=== PATIENT | female | born 1975 | race Caucasian/White ===

== ENCOUNTER 2016-08-10 20:15 | Emergency (ER) | payer SELFPAY ==
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
[2016-08-10 21:48] VITALS: BP 116/69
--- NOTE | 2016-08-10 23:15 | ED Physician Documentation ---
Fall - HISTORIAN Historian: patient - HPI Stated Complaint: tailbone pain Chief Complaint: Fall Additional Information: Slid down 3-4 carpeted steps. Hurt sacral area. No other injuries. Ambulating. Onset: just prior to arrival Where: home Context: slipped r: moderate Associated Symptoms:: no loss of consciousness Location of Pain/Injury: lower back Injury to Right Extremity: none Injury to Left Extremity: none Front/Back of Body, Lg ([place]): 1 - pain Further Comments: no - ROS CONST: no problems NEURO: denies: dizziness, anxiety, depression MS/SKIN/LYMPH: denies: weakness, numbness, neck pain, back pain, ankle swelling , leg swelling, rash EYES/ENT: none CVS/RESP: none GI/: denies: problems urinating, nausea, vomiting - PAST HX Past History: other (L1 compression fracture) Immunizations: referred to PCP Allergies/Adverse Reactions: Allergies Allergy/AdvReac Type Severity Reaction Status Date / Time codeine Allergy Mild Verified 08/10/16 20:28 Home Medications: Ambulatory Orders Medication Instructions Recorded NK [NK] 02/02/16 - SOCIAL HX Smoking History: cigarettes Alcohol Use: none Drug Use: none - FAMILY HX Family History: no significant history - VITAL SIGNS Vital Signs: Vital Signs Temp Pulse Resp BP Pulse Ox 92 H 16 116/69 99 08/10/16 21:35 08/10/16 21:35 08/10/16 21:35 08/10/16 21:35 - REVIEWED ASSESSMENTS Nursing Assessment Reviewed: Yes Vitals Reviewed: Yes Progress - Results/Orders Results/Orders: x-rays ordered L-spine - Progress Progress: pt. stable entire time in er Critical Care Note - Critical Care Note Total Time (mins): 0 ED Results Lab/Radiology - Lab Results Lab Results: none ordered - Radiology Radiology Impressions: x-rays no acute injury - Orders Orders: ED Orders Category Date Time Status L SPINE 2 OR 3 VIEWS [RAD] Stat Exams 08/10/16 Completed Fall Physical Exam - Physical Exam General Appearance: alert, moderate distress Head: non-tender, no swelling, no obvious injury. No: raccoon eyes, Perkins's sign, trauma Neck: non-tender, painless ROM, trachea midline Eye: REJI, EOMI, lids & conjunct. nml ENT: nml external inspection, no dental injury, no oral injury, airway nml Resp/CVS: chest non-tender, no ecchymosis, breath sounds nml, no resp. distress , heart sounds nml Abdomen: soft, no organomegaly, normal bowel sounds, no abdominal bruit, no distension, non-tender Neuro: oriented x3, CN's nml as tested, sensation nml, motor nml, mood/affect nml, commercial energy rater nml, reflexes nml Skin: color nml, no rash. No: ecchymosis Back: no CVA tenderness, no vertebral tenderness. No: muscle spasm Extremities: atraumatic, pelvis stable, hips non-tender, no pedal edema, nml ROM , other (slr neg to 90 degrees bilat.) - [place] Coma Score Eyes Open: Spontaneous Speech: Oriented Motor: Obeys Commands (15) Discharge Clincal Impression: Lower back injury Qualifiers: Encounter type: initial encounter Qualified Code(s): S39.92XA - Unspecified injury of lower back, initial encounter Strain, sacral Qualifiers: Encounter type: initial encounter Qualified Code(s): S39.012A - Strain of muscle, fascia and tendon of lower back, initial encounter Referrals: Primary Doctor,No [Primary Care Provider] - 2 Days Home Medications: Ambulatory Orders NK [NK] 02/02/16 Comments: discharged with otc ibuprofen Condition: Stable Disposition: 01 HOME, SELF-CARE Decision to Admit: NO Decision Time: 21:30
== END 2016-08-10 21:32 | disposition home or self-care (01) ==
LOC: ED 20:15
DX: S39.92XA Unspecified injury of lower back, initial encounter (principal); S39.012A Strain of muscle, fascia and tendon of lower back, initial encounter; W19.XXXA Unspecified fall, initial encounter; Y93.9 Activity, unspecified; Y99.9 Unspecified external cause status
CPT/HCPCS: 72100; 99283

== ENCOUNTER 2016-10-24 20:00 | Emergency (ER) | payer BC, OTHER ==
[2016-10-24 20:08] VITALS: BP 118/80
[2016-10-24] MEDS: SULFAMETHOXAZOLE/TRIMETHOPRIM 1 EACH TABLET PO ONE (20:22)
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
== END 2016-10-24 20:23 | disposition home or self-care (01) ==
LOC: ED 20:00
DX: L03.113 Cellulitis of right upper limb (principal)
CPT/HCPCS: 99283; A9270

== ENCOUNTER 2018-03-23 16:12 | Emergency (ER) | payer SELFPAY ==
[2018-03-23 19:29] LABS: BASOPHILS % 0.7 (0.0-1.5); EOSINOPHILS % 5.5 % (0.0-6.8); MEAN CORPUSCULAR HEMOGLOBIN 32.7 pg (28.0-34.0); MONOCYTES % 5.9 % (0.0-11.0); NEUTROPHILS # 4.4 # k/uL (1.4-7.7)
[2018-03-23] MEDS: 0.9 % SODIUM CHLORIDE 1,000 ML IV ONE (19:33)
[2018-03-23 19:42] LABS: eGFR (Non-African) > 60
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
[2018-03-23 21:07] VITALS: BP 111/65
== END 2018-03-23 20:31 | disposition home or self-care (01) ==
LOC: ED 16:12
DX: K02.9 Dental caries, unspecified (principal); R11.2 Nausea with vomiting, unspecified
CPT/HCPCS: 80053; 85025; J7030; 96365; 99283; S1016

== ENCOUNTER 2018-12-10 19:12 | Emergency (ER) | payer SELFPAY ==
--- NOTE | 2018-12-10 19:22 | ED Physician Documentation ---
Sore Throat/Dental Pain - HISTORIAN Historian: patient - HPI Stated Complaint: dental pain x 3 weeks increased last two days Chief Complaint: Dental Pain Onset: days ago (14) Context: Dental Caries, Possible Infection Associated Symptoms: moderate, L ear pain. denies: fever, chills, sore throat, unable to swallow, runny nose, congestion Further Comments: yes (SHe has dental pain left lower jaw and into ear. Pain started over three weeks ago started to increase last two days. She has taken Ibuprofen at 1 pm and she is concerned about swelling and pain. She has a dentist she can make an appt with. No fever.) - ROS CONST: no problems NEURO/PSYCH: headache - PAST HX Past History: none Immunizations: UTD Allergies/Adverse Reactions: Allergies Allergy/AdvReac Type Severity Reaction Status Date / Time codeine Allergy Mild Verified 03/23/18 17:57 Home Medications: Ambulatory Orders Medication Instructions Recorded Penicillin V Potassium [Pen V K] 500 mg PO TID #30 tablet 03/23/18 - SOCIAL HX Smoking History: cigarettes Alcohol Use: none Drug Use: none - FAMILY HX Family History: No - VITAL SIGNS Vital Signs: Vital Signs Temp Pulse Resp BP Pulse Ox 111/65 03/23/18 21:02 - REVIEWED ASSESSMENTS Nursing Assessment Reviewed: Yes Vitals Reviewed: Yes Dental Pain Physical Exam - EXAM General Appearance: no acute distress, alert Head/Neck: head nml inspection. No: pain over sinuses Eyes: eyes nml inspection, PERRL Mouth/Throat: lips nml, pharynx nml, voice nml, no drooling, no air way problems, gum swelling around teeth Ear/Nose: nml inspection Respiratory: no resp. distress, breath sounds nml CVS: reg. rate & rhythm, heart sounds nml Abdomen: soft, no distension Extremities: non-tender Skin: warm/dry Neuro/Psych: none Discharge Clincal Impression: Dental caries Referrals: Primary Doctor,No [Primary Care Provider] - 2 Days Comments: 1. Amoxicillin 875 mg take 1 by mouth twice daily x 10 days 2. OTC meds as directed as needed for pain 3. Warm salt water gargles 4. See Dentist TRISTEN 5. Return to ER for any increasing concerns Condition: Stable Disposition: 01 HOME, SELF-CARE Decision to Admit: NO Date of Decison to Admit: 12/10/18 Decision Time: 20:11
[2018-12-10] MEDS ORDERED: AMOXICILLIN 500 MG CAPSULE PO ONE (19:51)
[2018-12-10] MEDS ORDERED: KETOROLAC TROMETHAMINE 60 MG/2 ML VIAL IM ONE (19:51)
[2018-12-10 20:25] VITALS: BP 127/70
== END 2018-12-10 20:04 | disposition home or self-care (01) ==
LOC: ED 19:12
DX: K02.9 Dental caries, unspecified (principal)
CPT/HCPCS: 96372; 99284; J1885